=== PATIENT | female | born 1955 | race Caucasian/White ===

== ENCOUNTER 2017-11-05 05:45 | Day surgery (SDC) | payer OTHER ==
[2017-11-05 06:52] LABS: ADD MAN DIFF? NO
[2017-11-05 07:00] LABS: WHITE BLOOD COUNT 5.4 10^3/ul (4.8-10.8)
[2017-11-05 07:00] LABS: BASOPHILS % 0.4 % (0.0-2.0); EOSINOPHILS # 0.2 10^3/ul (0.0-0.5); EOSINOPHILS % 2.9 % (0.0-7.0); HEMATOCRIT 39.9 % (37.0-47.0); HEMOGLOBIN 13.2 g/dl (12.0-16.0); LYMPHOCYTES # 2.3 10^3/ul (0.8-2.9); LYMPHOCYTES % 42.2 % (15.0-51.0); MEAN CORPUSCULAR HEMOGLOBIN 30.2 pg (29.0-33.0); MEAN CORPUSCULAR HGB CONC 33.1 g/dl (32.0-37.0); MEAN CORPUSCULAR VOLUME 91.3 fl (82.0-101.0); MEAN PLATELET VOLUME 10.4 fl (7.4-10.4); MONOCYTE # 0.5 10^3/ul (0.3-0.9); MONOCYTES % 9.6 % (0.0-11.0); NEUTROPHIL # 2.4 10^3/ul (1.6-7.5); NEUTROPHILS % 44.5 % (39.0-77.0); PLATELET COUNT 166 10^3/UL (140-415); RED BLOOD COUNT 4.37 10^6/ul (4.20-5.40); RED CELL DISTRIBUTION WIDTH 13.5 % (11.5-14.5)
[2017-11-05 07:14] LABS: INR 0.97
[2017-11-05] MEDS ORDERED: HEPARIN 1000 UNITS/ML 10 ML INJ (07:16)
[2017-11-05] MEDS ORDERED: LIDOCAINE 1% (MDV) 20 ML INJ (07:16)
[2017-11-05] MEDS ORDERED: IODIXANOL LOCM 100 ML BTL (07:16)
[2017-11-05] MEDS ORDERED: VERAPAMIL 5 MG INJ (07:17)
[2017-11-05] MEDS ORDERED: MIDAZOLAM 1 MG/ML 2 ML INJ (07:17)
[2017-11-05] MEDS ORDERED: FENTAnyl 50 MCG/ML VIAL (07:17)
[2017-11-05] MEDS ORDERED: NITROGLYCERIN (IC) 100 MCG/ML INJ (07:17)
[2017-11-05] MEDS ORDERED: SOD CHLORIDE 0.9% 1,000 ML IV (07:21)
[2017-11-05 07:27] LABS: ANION GAP 14 (8-16); CARBON DIOXIDE 30 mmol/L (21-31); CHLORIDE 108 mmol/L (97-110); GLUCOSE 97 mg/dl (70-220)
[2017-11-05] MEDS ORDERED: HOLD all METFORMIN and METFORMIN CONTAINING medications for 48 hours post procedure. Chec XX (07:30)
[2017-11-05 07:31] LABS: BLOOD UREA NITROGEN 16 mg/dl (7-20); CREATININE 0.62 mg/dl (0.44-1.00); POTASSIUM 4.5 mmol/L (3.5-5.1); SODIUM 147 mmol/L (135-144)
== END 2017-11-05 10:17 | disposition home or self-care (01) ==
LOC: SDS 05:45
DX: I25.10 Atherosclerotic heart disease of native coronary artery without angina pectoris (principal); Z95.0 Presence of cardiac pacemaker; I10 Essential (primary) hypertension; R94.39 Abnormal result of other cardiovascular function study
CPT/HCPCS: 80048; 85025; 85610; 93005; 93458

== ENCOUNTER 2018-04-26 12:03 | Emergency (ER) | payer OTHER ==
[2018-04-26] MEDS: LORAZEPAM 1 MG TAB PO (13:12)
[2018-04-26] MEDS: IBUPROFEN 600 MG TAB PO (13:12)
== END 2018-04-26 14:52 | disposition home or self-care (01) ==
LOC: FTE 12:03
DX: S46.812A Strain of other muscles, fascia and tendons at shoulder and upper arm level, left arm, initial encounter (principal); I10 Essential (primary) hypertension; X58.XXXA Exposure to other specified factors, initial encounter; Y92.9 Unspecified place or not applicable
CPT/HCPCS: 73030; 93005; 93971; 99285-25